=== PATIENT | female | born 1990 | race Two or more races ===

== ENCOUNTER 2018-11-18 15:40 | Emergency (ER) | payer OTHER ==
[~2018-11-18] VITALS: Ht 162.6 cm; Wt 94.8 kg
[2018-11-18 16:00] VITALS: BP 138/80
== END 2018-11-18 22:58 | disposition left against medical advice (07) ==
LOC: ER 15:47
DX: R07.0 Pain in throat (principal); Z53.21 Procedure and treatment not carried out due to patient leaving prior to being seen by health care provider